=== PATIENT | female | born 1960 | race Caucasian/White ===

== ENCOUNTER 2023-01-18 09:24 | Day surgery (SDC) | payer OTHER ==
[~2023-01-18] VITALS: Ht 157.5 cm; Wt 54.9 kg
[2023-01-18] MEDS ORDERED: fentaNYL citrate 0.05 MG/ML VIAL ONE (11:34)
[2023-01-18] MEDS ORDERED: MIDAZOLAM 2 MG/2 ML VIAL ONE (11:35)
[2023-01-18] MEDS ORDERED: MIDAZOLAM 2 MG/2 ML VIAL IVP ONE (13:20)
[2023-01-18] MEDS ORDERED: fentaNYL citrate 0.05 MG/ML VIAL IVP ONE (13:20)
== END 2023-01-18 13:30 | disposition home or self-care (01) ==
LOC: MDS 09:24 → MMU 09:45 → MDS 13:30
PROVIDERS: ATTEND Internal Medicine Gastroenterology
DX: K21.9 Gastro-esophageal reflux disease without esophagitis (principal); K31.89 Other diseases of stomach and duodenum; B19.10 Unspecified viral hepatitis B without hepatic coma; I10 Essential (primary) hypertension; E78.5 Hyperlipidemia, unspecified; M81.0 Age-related osteoporosis without current pathological fracture; M19.90 Unspecified osteoarthritis, unspecified site; Z80.0 Family history of malignant neoplasm of digestive organs
CPT/HCPCS: 43239; 43245; 88305; 88312; 88313; 88342; J2250; J3010